=== PATIENT | female | born 2005 | race Caucasian/White ===

== ENCOUNTER 2023-02-05 03:01 | Emergency (ER) | payer SELFPAY ==
[2023-02-05] MEDS ORDERED: Lorazepam 2 MG/ML VIAL ONE (03:21)
[2023-02-05 03:27] LABS: #Monocytes 0.7 10x3/uL (0.0-1.1); #Neutrophils 4.4 10x3/uL (1.5-8.4); %Basophils 0.4 % (0.0-2.0); %Eosinophils 0.4 % (0.0-6.0); %Lymphocytes 48.9 % (18.0-47.0); %Monocytes 6.9 % (0.0-10.0); %Neutrophils 43.2 % (40.0-75.0); Hemoglobin 13.7 g/dL (12.0-15.5); Mean Corpuscular HGB CONC 33.6 g/dL (32.0-36.0); Mean Corpuscular Hemoglobin 28.9 pg (27.0-33.0); Mean Corpuscular Volume 86.1 fl (81.6-98.3); Mean Platelet Volume 10.5 fl (7.4-10.4); Platelet Count 259 10x3/uL (150-450); RBC Distribution Width 13.1 % (11.5-14.5); Red Blood Cell (RBC) Count 4.74 10x6/uL (3.90-5.03); White Blood Cell (WBC) Count 10.2 10x3/uL (3.5-10.5)
[2023-02-05 03:43] LABS: Acetaminophen Less than 10.0 mcg/mL (10.0-30.0); Alcohol 239 mg/dL (Less than 10); Salicylate Less than 8.0 mg/dL (15.0-30.0)
[2023-02-05 07:39] LABS: BHCG - Serum Negative (NEGATIVE); Pregs Control Background? CLEAR/WHITE (CLR/WHITE); Pregs Control Bar Appear? YES (CONTROL BAR)
[2023-02-05 07:45] LABS: ALT (SGPT) 27 U/L (8-55); AST (SGOT) 27 U/L (5-30); Albumin 4.5 g/dL (3.5-5.0); Alkaline Phosphatase 57 U/L (40-100); Anion Gap 21 mmol/L (10-20); BUN (Urea Nitrogen) 10 mg/dL (8.4-21.0); Bilirubin, Total 0.5 mg/dL (0.2-1.2); Calc. Creatinine Clearance 0 mL/min (70-130); Calcium 9.4 mg/dL (7.8-10.44); Carbon Dioxide 16 mmol/L (22-29); Chloride 108 mmol/L (98-107); Estimated GFR 106; Globulin 3.2 g/dL (2.4-3.5); Glucose 94 mg/dL (70-105); Potassium 3.9 mmol/L (3.5-5.1); Protein, Total 7.7 g/dL (6.0-8.3); Sodium 141 mmol/L (136-145)
== END 2023-02-05 07:58 | disposition home or self-care (01) ==
LOC: CSHERS 03:01
DX: R06.02 Shortness of breath (principal); R07.81 Pleurodynia
CPT/HCPCS: 71045; 80053; 80307; 84703; 85025; 93005; 94760; 96361; 96374; J2060